=== PATIENT | male | born 1970 | race Hispanic/Latino ===

== ENCOUNTER 2020-10-31 10:31 | Outpatient (CLI) | payer OTHER ==
--- NOTE | 2020-10-31 15:18 | CT ---
CT ABDOMEN AND PELVIS WITH CONTRAST: COMPARISON: 05/08/2020, 10/23/2019. HISTORY: Renal cell carcinoma status post right nephrectomy. Followup exam to evaluate for recurrent or metas tatic disease. TECHNIQUE: Multiple contiguous axial images were obtained in a CT of the abdomen and pelvis with contrast. Sagi ttal and coronal reformats were performed. FINDINGS: The patient is status post right nephrectomy. The liver, gallbladder, left kidney, adrenal glands, s pleen, and pancreas are unremarkable. No free air, free fluid, o or stranding changes are seen in the abdomen and pelvis. Scattered divert icula are seen in the colon. The small bowel is normal in caliber. The appendix is normal. No abdominal or pelvic lymphadenopathy are seen. Stranding changes of the abdominal wall may be from recent injections. The visualized inferior thorax is unremarkable. Mild degenerative changes are s een in the spine. No suspicious osseous lesions are present. IMPRESSION: No evidence of recurrent or metastatic disease. POS: [facility]
== END 2020-10-31 10:32 | disposition home or self-care (01) ==
LOC: BICCT 10:31
PROVIDERS: ATTEND Urology
DX: C64.1 Malignant neoplasm of right kidney, except renal pelvis (principal)
CPT/HCPCS: 74177; 82565

== ENCOUNTER 2022-09-18 19:30 | Outpatient (CLI) | payer BC | END 2022-09-18 19:31 | disposition home or self-care (01) | LOC: SLEEPLAB 19:30 | PROVIDERS: ATTEND Family Medicine | DX: G47.10 Hypersomnia, unspecified (principal); G47.9 Sleep disorder, unspecified | CPT/HCPCS: 95811 ==

== ENCOUNTER 2024-04-20 16:00 | Outpatient (CLI) | payer BC | END 2024-04-20 16:01 | disposition home or self-care (01) | LOC: SLEEPLAB 16:00 | PROVIDERS: ATTEND Family Medicine | DX: G47.33 Obstructive sleep apnea (adult) (pediatric) (principal); G47.10 Hypersomnia, unspecified; R53.83 Other fatigue; E11.9 Type 2 diabetes mellitus without complications; E66.9 Obesity, unspecified; R06.83 Snoring; G47.00 Insomnia, unspecified; I10 Essential (primary) hypertension; Z68.39 Body mass index [BMI] 39.0-39.9, adult | CPT/HCPCS: 95800 ==